=== PATIENT | female | born 1950 | race Caucasian/White ===

== ENCOUNTER 2019-03-20 09:04 | Inpatient (IN) | payer OTHER ==
[2019-03-19 13:19] VITALS: BMI 34.0
--- NOTE | 2019-03-20 07:27 | HP ---
History & Physical Update - History History: No Change - Physical Physical: No Change - Assessment Assessment: No Change - Plan Plan: No Change (Initial H&P is located in her paper chart by Dr. Ricky Rico 03/12/19. No new complaints or medications. Here today for elective L4/5 TLIF)
[~2019-03-20 09:04] MED LIST: CLINDAMYCIN 900 MG PREMIX IVPB 900 MG/50 ML BAG IVPB ONE
[2019-03-20] MEDS ORDERED: MIDAZOLAM HCL 2 MG/2 ML SINGLE DOSE VIAL ONE ×2 (10:17)
[2019-03-20] MEDS ORDERED: BUPIVACAINE LIPOSOME/PF (EXPAREL) 266 MG/20 ML VIAL ONE (10:52)
[2019-03-20] MEDS ORDERED: GUM MASTIC/STORAX/MSAL/ALCOHOL 1 DRP DROPSBTL MC ONE (11:37)
[2019-03-20] MEDS ORDERED: THROMBIN (RECOMBINANT) 5,000 UNIT VIAL TP ONE (11:37)
[2019-03-20] MEDS ORDERED: CLINDAMYCIN PHOSPHATE 600 MG/4 ML VIAL ONE (11:59)
[2019-03-20] MEDS ORDERED: ePHEDrine SULFATE 50 MG/1 ML AMPULE ONE (12:03)
[2019-03-20] MEDS ORDERED: KETOROLAC TROMETHAMINE 30 MG/1 ML VIAL ONE (12:12)
[2019-03-20] MEDS ORDERED: DEXAMETHASONE SOD PHOSPHATE 4 MG/1 ML VIAL ONE (12:12)
[2019-03-20] MEDS ORDERED: PHENYLEPHRINE HCL 10 MG/1 ML SINGLE DOSE VIAL ONE (12:55)
[2019-03-20] MEDS ORDERED: ACETAMINOPHEN INJECTION 100 ML IVPB ONE (13:27)
--- NOTE | 2019-03-20 14:16 | OP ---
Operative Note - Note: Operative Date: 03/20/19 Pre-Operative Diagnosis: L4/5 Spondylolithesis w/ RLE radiculopathy Operation: L4/5 TLIF, allograft implant. Neuromonitoring Post-Operative Diagnosis: Same as Pre-op Surgeon: Etienne Reynoso Insurance Account Specialist: Bill De La Vega Anesthesia: Spinal Estimated Blood Loss (mls): 30 Fluid Volume Replaced (mls): 1,000 Operative Report Dictated: Yes
[2019-03-20] MEDS ORDERED: ONDANSETRON 4 MG/2 ML VIAL IVPUSH PRN (14:20)
[2019-03-20] MEDS ORDERED: oxyCODONE HCL 5 MG TABLET PO PRN ×4 (14:20→16:57)
--- NOTE | 2019-03-20 14:20 | SURG ---
Surgery Mid Level Developer Note Mid Level Developer: Bill De La Vega PA-C Date of Service: 03/20/19 Diagnosis: L4/5 Spondylolithesis with RLE radiculopathy Procedure: Posterior Lumbar Decompression / Fusion / Instrumentation / Transforaminal Lumbar Interbody Fusion L4/5 w/ Allograft Implant and Neuromonitoring I was present for the entirety of the operative procedure. For further detail, please refer to operative report. Visit type - Case Type Case Type: Scheduled - New patient This patient is new to me today: Yes Date on this admission: 03/20/19
[2019-03-20] MEDS ORDERED: ACETAMINOPHEN 1000 MG/100 ML VIAL (NON FORMULARY) IVPB PRN ×2 (14:21→20:00)
[2019-03-20] MEDS ORDERED: KETOROLAC TROMETHAMINE 30 MG/1 ML VIAL IVPUSH PRN (14:21)
[2019-03-20] MEDS ORDERED: LACTATED RINGERS SOLUTION 1,000 ML IV SCH ×2 (14:30)
[2019-03-20] MEDS: CLINDAMYCIN 600MG PREMIX IVPB 600 MG/50 ML BAG IVPB SCH (18:10)
[2019-03-20] MEDS: oxyCODONE HCL 5 MG TABLET PO PRN (20:53)
[2019-03-20] MEDS: diazePAM 2 MG TABLET PO SCH (21:45)
[2019-03-20] MEDS: TIMOLOL 0.5% OPHTHALMIC SOL 5 ML BOTTLE OU SCH (21:50)
[2019-03-20] MEDS: BRIMONIDINE TARTRATE 0.2% OPHTHALMIC 5 ML BOTTLE OU SCH (21:51)
[2019-03-20] MEDS ORDERED: LATANOPROST 0.005% OPHTH SOLN 2.5ML BOTTLE OU SCH (22:00)
[2019-03-20] MEDS ORDERED: FENOFIBRIC ACID 135 MG CAP PO SCH (22:00)
[2019-03-20] MEDS ORDERED: PATIENT'S OWN MEDICATION (NON-FORMULARY) (Fenofibrate Nanocrystallized [Fenofibrate] 145 M PO SCH (22:00)
[2019-03-20] MEDS ORDERED: PATIENT'S OWN MEDICATION (NON-FORMULARY) (Brimonidine Tartrate/Timolol [Combigan 0.2%-0.5% OU SCH (22:00)
[2019-03-20] MEDS ORDERED: PATIENT'S OWN MEDICATION (NON-FORMULARY) (Simvastatin 40 MG) PO SCH (22:00)
[2019-03-20] MEDS ORDERED: ATORVASTATIN CA 20 MG TABLET (FP) PO SCH (22:00)
[2019-03-20] MEDS ORDERED: PATIENT'S OWN MEDICATION (NON-FORMULARY) (Bimatoprost [Lumigan] 1 DROP) OU SCH (22:00)
[2019-03-21] MEDS: CLINDAMYCIN 600MG PREMIX IVPB 600 MG/50 ML BAG IVPB SCH ×2 (01:21→09:44)
[2019-03-21] MEDS: oxyCODONE HCL 5 MG TABLET PO PRN ×2 (05:55→12:33)
[2019-03-21] MEDS ORDERED: metFORMIN HCL 500 MG TABLET (FP) PO SCH (07:00)
[2019-03-21 08:13] LABS: HEMATOCRIT 31.8 % (32.4-45.2); HEMOGLOBIN 10.2 GM/dl (10.7-15.3); MCH 28.5 pg (25.7-33.7); MEAN CELL VOLUME 89.1 fl (80-96); MEAN PLT VOLUME 8.8 fl (7.5-11.1); PLATELET COUNT 267 K/MM3 (134-434); RBC 3.57 M/mm3 (3.60-5.2); RDW 14.1 % (11.6-15.6); WHITE BLOOD COUNT 7.8 K/mm3 (4.0-10.8)
[2019-03-21 08:18] LABS: CALCIUM 8.8 mg/dl (8.5-10); CREATININE 0.7 mg/dl (0.55-1.3); POTASSIUM 4.4 mmol/L (3.5-5.1)
[2019-03-21] MEDS ORDERED: PT OWN MED DRAWER 7, Y5N ONE (09:13)
[2019-03-21 09:40] VITALS: BP 107/46; PULSE 69; TEMP 97.9
[2019-03-21] MEDS: BRIMONIDINE TARTRATE 0.2% OPHTHALMIC 5 ML BOTTLE OU SCH (09:43)
[2019-03-21] MEDS: diazePAM 2 MG TABLET PO SCH (09:43)
[2019-03-21] MEDS: TIMOLOL 0.5% OPHTHALMIC SOL 5 ML BOTTLE OU SCH (09:44)
[2019-03-21] MEDS ORDERED: BIOTIN 800 MCG PO SCH (10:00)
[2019-03-21] MEDS ORDERED: PSEUDOEPHEDRINE PO SCH (10:00)
[2019-03-21] MEDS ORDERED: ASPIRIN COATED 81 MG TABLET.EC PO SCH (10:00)
[2019-03-21] MEDS ORDERED: CHOLECALCIFEROL (VIT D3) 1,000 UNIT (25 MCG) TABLET PO SCH (10:00)
[2019-03-21] MEDS ORDERED: PATIENT'S OWN MEDICATION (NON-FORMULARY) (Zinc [Zinc] 50 MG) PO SCH (10:00)
[2019-03-21] MEDS ORDERED: [UNRECOGNIZED DRUG - OTHER] PO SCH (10:00)
[2019-03-21] MEDS ORDERED: ACETAMINOPHEN 650 MG PO SCH (10:00)
[2019-03-21] MEDS ORDERED: PATIENT'S OWN MEDICATION (NON-FORMULARY) (Losartan Potassium [Losartan Potassium] 100 MG) PO SCH (10:00)
[2019-03-21] MEDS ORDERED: DESLORATADINE PO SCH (10:00)
[2019-03-21] MEDS ORDERED: LYSINE 500 MG PO SCH (10:00)
[2019-03-21] MEDS ORDERED: NIACIN PO SCH (10:00)
[2019-03-21] MEDS ORDERED: LOSARTAN POTASSIUM 50 MG TABLET (FP) PO SCH (10:00)
[2019-03-21] MEDS ORDERED: Pregnancy Control Solution IV ONE (11:09)
--- NOTE | 2019-03-21 12:09 | DS ---
Physical Exam: SUBJECTIVE: Patient seen and examined this am. Right leg pain improved. Ambulated to the restroom without difficultly. No CP or SOB. Voiding without difficulty. OBJECTIVE: Vital Signs Temperature 97.9 F 03/21/19 09:36 Pulse Rate 69 03/21/19 09:36 Respiratory Rate 18 03/21/19 09:36 Blood Pressure 107/46 L 03/21/19 09:36 O2 Sat by Pulse Oximetry (%) 96 03/21/19 09:36 PHYSICAL EXAM GENERAL: The patient is awake, alert, and fully oriented, in no acute distress. LUNGS: Breath sounds equal, clear to auscultation bilaterally, no wheezes. HEART: Regular rate and rhythm. ABDOMEN: Soft, nontender, nondistended. EXTREMITIES: No edema or calf tendneress b/l to LE. NEUROLOGICAL: Normal speech, gait not observed. 5/5 dorsi/plantar flexion/EHL b /l. PSYCH: Normal mood, normal affect. BACK: Dressing c/d/i. LABS CBC,CMP WBC 7.8 K/mm3 (4.0-10.8) 03/21/19 06:58 RBC 3.57 M/mm3 (3.60-5.2) L 03/21/19 06:58 Hgb 10.2 GM/dl (10.7-15.3) L 03/21/19 06:58 Hct 31.8 % (32.4-45.2) L 03/21/19 06:58 MCV 89.1 fl (80-96) 03/21/19 06:58 MCH 28.5 pg (25.7-33.7) 03/21/19 06:58 MCHC 32.0 g/dl (32.0-36.0) 03/21/19 06:58 RDW 14.1 % (11.6-15.6) 03/21/19 06:58 Plt Count 267 K/MM3 (134-434) 03/21/19 06:58 MPV 8.8 fl (7.5-11.1) 03/21/19 06:58 Sodium 136 mmol/L (136-145) 03/21/19 06:58 Potassium 4.4 mmol/L (3.5-5.1) 03/21/19 06:58 Chloride 102 mmol/L (98-107) 03/21/19 06:58 Carbon Dioxide 24 mmol/L (21-32) 03/21/19 06:58 Anion Gap 10 MMOL/L (8-16) 03/21/19 06:58 BUN 20 mg/dl (7-18) H 03/21/19 06:58 Creatinine 0.7 mg/dl (0.55-1.3) 03/21/19 06:58 Est GFR (CKD-EPI)AfAm 101.74 03/21/19 06:58 Est GFR (CKD-EPI)NonAf 87.78 03/21/19 06:58 POC Glucometer 118 UNITS (80-120) 03/20/19 14:42 Random Glucose 146 mg/dl (74-106) H 03/21/19 06:58 Calcium 8.8 mg/dl (8.5-10) 03/21/19 06:58 HOSPITAL COURSE: The patient was admitted to the Med-Surg Unit after an elective repair of their Lumbar sphonylilisthesis. Now, s/p L4/5 TLIF. The day of surgery, the patient ambulated the hallways with assistance. Narcotic and non-narcotic pain management control was achieved with an oral and IV approach. An xray was obtained and confirmed hardware placement at L4-5. DVT ppx was acheived with SCDs and early ambulation. The patient ambulated with Physical Therapy and no services were recommended upon discharge. Narcotic scripts and or muscle relaxants were checked with [place] [employer] [facility] NURSE prior to escibe. The discharge instructions and an oral pain management plan were reviewed with the patient. All questions answered. Above plan discussed with Dr. Reynoso and agreed. Date of Admission:03/20/19 Date of Discharge: 03/21/19 Minutes to complete discharge: 20 <Sandy Faulkner - Last Filed: 03/21/19 12:09> Physical Exam: SUBJECTIVE: Patient seen and examined OBJECTIVE: Vital Signs Temperature 97.9 F 03/21/19 09:36 Pulse Rate 69 03/21/19 09:36 Respiratory Rate 18 03/21/19 09:36 Blood Pressure 107/46 L 03/21/19 09:36 O2 Sat by Pulse Oximetry (%) 96 03/21/19 09:36 PHYSICAL EXAM GENERAL: The patient is awake, alert, and fully oriented, in no acute distress. HEAD: Normal with no signs of trauma. EYES: PERRL, extraocular movements intact, sclera anicteric, conjunctiva clear. ENT: Ears normal, nares patent, oropharynx clear without exudates, moist mucous membranes. NECK: Trachea midline, full range of motion, supple. LUNGS: Breath sounds equal, clear to auscultation bilaterally, no wheezes, no crackles, no accessory muscle use. HEART: Regular rate and rhythm, S1, S2 without murmur, rub or gallop. ABDOMEN: Soft, nontender, nondistended, normoactive bowel sounds, no guarding, no rebound, no hepatosplenomegaly, no masses. EXTREMITIES: 2+ pulses, warm, well-perfused, no edema. NEUROLOGICAL: Cranial nerves II through XII grossly intact. Normal speech, gait not observed. PSYCH: Normal mood, normal affect. SKIN: Warm, dry, normal turgor, no rashes or lesions noted. LABS CBC,CMP WBC 7.8 K/mm3 (4.0-10.8) 03/21/19 06:58 RBC 3.57 M/mm3 (3.60-5.2) L 03/21/19 06:58 Hgb 10.2 GM/dl (10.7-15.3) L 03/21/19 06:58 Hct 31.8 % (32.4-45.2) L 03/21/19 06:58 MCV 89.1 fl (80-96) 03/21/19 06:58 MCH 28.5 pg (25.7-33.7) 03/21/19 06:58 MCHC 32.0 g/dl (32.0-36.0) 03/21/19 06:58 RDW 14.1 % (11.6-15.6) 03/21/19 06:58 Plt Count 267 K/MM3 (134-434) 03/21/19 06:58 MPV 8.8 fl (7.5-11.1) 03/21/19 06:58 Sodium 136 mmol/L (136-145) 03/21/19 06:58 Potassium 4.4 mmol/L (3.5-5.1) 03/21/19 06:58 Chloride 102 mmol/L (98-107) 03/21/19 06:58 Carbon Dioxide 24 mmol/L (21-32) 03/21/19 06:58 Anion Gap 10 MMOL/L (8-16) 03/21/19 06:58 BUN 20 mg/dl (7-18) H 03/21/19 06:58 Creatinine 0.7 mg/dl (0.55-1.3) 03/21/19 06:58 Est GFR (CKD-EPI)AfAm 101.74 03/21/19 06:58 Est GFR (CKD-EPI)NonAf 87.78 03/21/19 06:58 POC Glucometer 118 UNITS (80-120) 03/20/19 14:42 Random Glucose 146 mg/dl (74-106) H 03/21/19 06:58 Calcium 8.8 mg/dl (8.5-10) 03/21/19 06:58 HOSPITAL COURSE: Date of Admission:03/20/19 Date of Discharge: 03/21/19 Patient seen and examined Agree with above D/C Planning <Etienne Reynoso - Last Filed: 03/21/19 12:14> Visit type - Case Type Case Type: Scheduled - Emergency Emergency Visit: No - New patient This patient is new to me today: Yes Date on this admission: 03/21/19 - Critical Care Critical Care patient: No <Sandy Faulkner - Last Filed: 03/21/19 12:09>
--- NOTE | 2019-03-21 13:20 | PN ---
Progress Note (short form) - Note Progress Note: ANESTHESIA POSTOP 69 YO FEMALE POD#1 S/P LUMBAR FUSION, SPINAL ANESTHESIA Patient resting in bed. Pain controlled. Didn't like the "itching" from the fentanyl. Tolerating PO. VSS, Afebrile Continue current care, encouraged IS and ambulation as tolerated. No anesthetic complications.
--- NOTE | 2019-03-27 11:07 | OP ---
DATE OF OPERATION: 03/20/2019 PREOPERATIVE DIAGNOSES: 1. L4-5 spondylolisthesis. 2. L4-5 spinal stenosis. POSTOPERATIVE DIAGNOSES: 1. L4-5 spondylolisthesis. 2. L4-5 spinal stenosis. PROCEDURE PERFORMED: 1. Transforaminal lumbar interbody fusion, L4-L5. 2. Placement of instrumentation. 3. Placement of prosthetic cage. SURGEON: Etienne Reynoso MD WIND SITE MANAGER: HUMERA Alvarado ESTIMATED BLOOD LOSS: 50 mL. INTRAVENOUS FLUIDS: Per Anesthesia. ANESTHESIA: Spinal/TLIP. COMPLICATIONS: None. DISPOSITION: Patient was brought to PACU in stable condition. INDICATION FOR SURGERY: The patient is a 69-year-old female who has been suffering from pain from her back down her legs. X-rays and MRI were completed which noted that she had spinal stenosis at L4-5. She had gone through an exhaustive course of treatment for this, which included medications, physical therapy as well as injections. Unfortunately, her pain continued to persist despite all this. At this point, risks, benefits, and alternatives were discussed, and the patient consented to surgery. DESCRIPTION OF PROCEDURE: Patient was brought to the operating room by the anesthesia staff. After appropriate patient identification was performed, spinal anesthesia was given. A TLIP block was also given. Patient was able to position herself prone onto the OR table with all areas of bony prominences well padded at this time. The C-arm was brought in. The L4-L5 pedicles were marked off. Her back was prepped and draped in a sterile manner. At this point, a timeout was completed. An incision was made from the top of L4 down to the bottom of L5. Dissection was carried down to the fascia. Fascia was split open at this time. Under C-arm guidance, trocars were advanced into both the L4-L5 pedicles. Through the trocar, wire was inserted. Over the wire, tap was performed and screws inserted on the right-hand side. Retractor blades were set up to expose the L4-5 facet joint. This was confirmed with x-ray. The facet joint was removed. The disk was entered. Using a series of pituitaries, Kerrisons, and curettes, diskectomy was completed. The endplates were decorticated at this time. A cage filled with bone graft was placed in. Tulip pads were placed over the screws. A hali was measured and placed in. Caps were placed on. Compression was applied. On the left-hand side, a hali was measured and placed in. Caps and compression were applied. AP and lateral x-rays confirmed the instrumentation to be in good position. All x-ray instrumentation was removed at this time. The fascia was closed with a number 1 Vicryl suture. Subcutaneous tissues were closed with 2-0 Vicryl suture. Skin was closed with 3-0 Monocryl suture. Dermabond was applied. Steri-Strips were applied. A sterile dressing was applied. Patient was placed supine on the OR bed and brought to the PACU in stable condition. Cristi [id number]
== END 2019-03-21 13:34 | disposition home or self-care (01) | DRG 455 ==
LOC: FM/S 09:04
PROVIDERS: ADMIT Orthopaedic Surgery Orthopaedic Surgery of the Spine; ATTEND Orthopaedic Surgery Orthopaedic Surgery of the Spine
PROC: 0SG0071 Fusion of Lumbar Vertebral Joint with Autologous Tissue Substitute, Posterior Approach, Posterior Column, Open Approach (ICD-10-PCS; 2019-03-20)
PROC: 0SB20ZZ Excision of Lumbar Vertebral Disc, Open Approach (ICD-10-PCS; 2019-03-20)
PROC: 4A11X4G Monitoring of Peripheral Nervous Electrical Activity, Intraoperative, External Approach (ICD-10-PCS; 2019-03-20)
PROC: 0SG00AJ Fusion of Lumbar Vertebral Joint with Interbody Fusion Device, Posterior Approach, Anterior Column, Open Approach (ICD-10-PCS; principal; 2019-03-20 12:29)
DX: M43.16 Spondylolisthesis, lumbar region (principal); M54.16 Radiculopathy, lumbar region; M48.061 Spinal stenosis, lumbar region without neurogenic claudication
CPT/HCPCS: 36415; 72100-TC-FY; 80048; 82962; 85027; 94660; 94760; 97116-GP; 97162-GP; J0131